=== PATIENT | female | born 1995 | race Caucasian/White ===

== ENCOUNTER → 2020-09-13 09:05 | Outpatient (BNVA) | payer MEDICAID, SELFPAY | PROVIDERS: PCP Nurse Practitioner Family; Visit Provider Advanced Practice Midwife | DX: Z32.01 Encounter for pregnancy test, result positive (principal) | CPT/HCPCS: 81025; 99212 ==

== ENCOUNTER 2020-10-11 09:56 | Outpatient (REF) | payer MEDICAID, SELFPAY ==
[2020-10-11 11:48] LABS: MANUAL DIFF FLAG NO
[2020-10-11 12:07] LABS: Basophils Percent Auto 0.4 % (0-2); Eosinophils Absolute Auto 0.1 X10*3/uL (0.0-0.4); Eosinophils Percent Auto 0.7 % (0-4); Hematocrit 34.7 % (37-47); Hemoglobin 11.2 g/dl (12.0-16.0); Imm Gran Abs Auto 0.03 X10*3/uL (0.00-0.03); Imm Gran Pct Auto 0.3 % (0.0-0.4); Lymphocytes Absolute Auto 1.5 X10*3/uL (1.2-4.9); Lymphocytes Percent Auto 17.2 % (20-40); Mean Corpuscular HGB Conc 32.3 g/dl (31.0-35.0); Mean Corpuscular Hemoglobin 26.7 pg (27.0-33.0); Mean Corpuscular Volume 82.6 fL (80-98); Mean Platelet Volume 9.5 fL (9.4-12.3); Monocytes Absolute Auto 0.5 X10*3/uL (0.1-1.2); Monocytes Percent Auto 5.6 % (2-11); Neutrophils Absolute Auto 6.8 X10*3/uL (2.0-8.3); Neutrophils Percent Auto 75.8 % (45-73); Platelet Count 449 X10*3/uL (160-400); Red Cell Distribution Width 15.5 % (11.0-16.0)
[2020-10-11 12:34] LABS: Amphetamine Screen Urine Not Detected (Not Detect); Barbiturates, Urine Not Detected (Not Detect); Benzodiazepines Screen Urine Not Detected (Not Detect); Cannabinoid Screen Urine POSITIVE (Not Detect); Cocaine Screen Urine Not Detected (Not Detect); Opiate Screen Urine Not Detected (Not Detect); Phencyclidine Screen Urine Not Detected (Not Detect)
[2020-10-11 13:34] LABS: Syphilis Screen Nonreactive (Nonreactive)
[2020-10-12 08:26] LABS: HBsAGNum1 0.17 S/CO (0.00-0.99); Hepatitis B Surface Antigen Negative (Negative); ~HepC Num1 0.06 S/CO (0.00-0.79); ~Hepatitis C Antibody Nonreactive (Nonreactive)
[2020-10-12 09:03] LABS: HIV AB/AG Nonreactive (Nonreactive); HIV Num 1 0.06 S/CO (0.00-0.99)
[2020-10-12 09:37] LABS: Rubella IgG Antibody 1.26 Index
== END 2020-10-11 09:57 | disposition home or self-care (01) ==
LOC: HO.LAB 09:56
PROVIDERS: Absent Provider Advanced Practice Midwife; Visit Provider Advanced Practice Midwife
DX: Z34.90 Encounter for supervision of normal pregnancy, unspecified, unspecified trimester (principal)
CPT/HCPCS: 80307; 85025; 86762; 86780; 86787; 86803; 86850; 86900; 86901; 87086; 87340; 87389; 99212

== ENCOUNTER 2020-10-22 09:32 | Outpatient (REF) | payer MEDICAID, SELFPAY ==
--- NOTE | ~2020-10-22 | US_ITS ---
EXAMINATION: OBSTETRICAL ULTRASOUND, FIRST TRIMESTER HISTORY: 25-year-old at the 11.4 weeks of gestation NT screening COMPARISON: 01/23/2020 TECHNIQUE: Real time transabdominal imaging with color and M-mode Doppler. FINDINGS: A single, live IUP CRL of 32.6 mm c/w 10.2wks is noted. Heart Rate: 161 beats per minute. Normal yolk sac seen. NT was 1.1.mm. NB Present The embryo appears sonographically wnl for this GA. Both maternal ovaries are seen and appear normal. GESTATIONAL AGE: 1. Established GA: 11.4 wks 2. GA from [facility]: 10.2 wks ESTIMATED DATE OF DELIVERY: 1. Established KEVIN: 05/09/2021 2. KEVIN from [facility]: 05/18/2021 US/US OB 1T nuc measure IMPRESSION: 1. Single, live IUP 2. Size less than dates, CRL corresponds to 10.2 weeks. Adjust KEVIN to 05/18/2021 3. Normal NT MFM Consultation: I reviewed the ultrasound findings along with significance of NT measurement. The NT of less than 3mm is generally reassuring. However, the sensitivity for T21 detection is only 60%. I reviewed the availability of serum aneuploidy screening which includes cell-free DNA and placental protein based tests. I discussed the sensitivity, false-positive rate, and other limitations associated with each test. I also reviewed the availability of invasive diagnostic tests that are associated small but definite risk of miscarriage. We also reviewed the differences between screening tests and diagnostic tests. After our discussion, she opted for the First trimester screening that is based on cell-free DNA or non-invasive testing (NIPT). The result will be faxed to your office in approximately 7 days. A follow up at 18 weeks for survey has been scheduled. Thank you very much for this referral. Total time 30 minutes. The time spent was devoted to counseling the patient about the disease and diagnosis, coordinating care including reviewing her records, pertinent lab data and studies, as well as discussing diagnostic evaluation and workup, plan therapeutic interventions and future disposition of care. This includes any additional research needed to obtain further information in formulating the plan of care of this patient. This note was generated with a voice recognition program. Please excuse any errors which may have been overlooked during my review of this note. Sometimes these errors may affect the content or meaning of a given sentence.
== END 2020-10-22 09:33 | disposition home or self-care (01) ==
LOC: HO.US 09:32
PROVIDERS: Visit Provider Advanced Practice Midwife
DX: Z32.01 Encounter for pregnancy test, result positive (principal)
CPT/HCPCS: 76813

== ENCOUNTER 2020-10-26 10:58 | Outpatient (REF) | payer MEDICAID, SELFPAY ==
[2020-10-27 04:14] LABS: CT PCR NOT DETECTED (Not Detect.); NG PCR NOT DETECTED (Not Detect.)
== END 2020-10-26 10:59 | disposition home or self-care (01) ==
LOC: HO.LAB 10:58
PROVIDERS: Visit Provider Advanced Practice Midwife
DX: O09.41 Supervision of pregnancy with grand multiparity, first trimester (principal); Z3A.12 12 weeks gestation of pregnancy
CPT/HCPCS: 81003; 87491; 87591; 99212

== ENCOUNTER → 2020-11-23 10:32 | Outpatient (BNVA) | payer MEDICAID, SELFPAY | PROVIDERS: Visit Provider Advanced Practice Midwife | DX: O09.212 Supervision of pregnancy with history of pre-term labor, second trimester (principal); Z3A.16 16 weeks gestation of pregnancy | CPT/HCPCS: 81003; 99212 ==

== ENCOUNTER 2020-12-17 11:23 | Outpatient (REF) | payer MEDICAID, SELFPAY ==
--- NOTE | ~2020-12-17 | US_ITS ---
EXAMINATION: US OBSTETRICAL CLINICAL INFORMATION: 25-year-old at 19.4 weeks of gestation Screening for anomaly COMPARISON: 10/22/2020 TECHNIQUE: Real-time transabdominal ultrasound was performed using C1-5 megahertz transducer. FINDINGS: A single, active, fetus is seen in transverse presentation. The placenta is posterior, fundal without previa, and the amniotic fluid volume is wnl. MEASUREMENTS: 1. Biparietal Diameter: 3.9 cm; 18.0 wks 2. Occipital Frontal Diameter: 5.4 cm 3. Head Circumference: 15.0 cm; 18.0 wks 4. Abdominal Circumference: 12.6 cm; 18.2 wks 5. Femur Length: 2.7 cm; 18.3 wks 6. Humerus Length: 6 2.6 cm; 18.2 wks 7. Tibia Length: 2.3 cm; 18.2 wks 8. Ulna Length: 2.5 cm; 19.0 wks 9. Lateral ventricle: 0.7 cm 10. Cerebellum: 1.8 cm; 19.0 wks 11. Cisterna Magna: 0.4 cm 12. Nuchal Fold: 3.5 mm 13. Heart Rate: 140 beats per minute Rt ovary: normal Lt ovary: normal Cervical length 4.1 cm on T/A. GESTATIONAL AGE: 1. Established GA: 19.4 wks 2. GA from [facility]: 18.2 wks ESTIMATED DATE OF DELIVERY: 1. Established KEVIN: 05/09/2021 2. KEVIN from [facility]: 05/18/2021 ANATOMY: The visualized anatomy includes but not limited to: 1. Cranium: Normal 2. Intracranial anatomy: cavum septum pellucidi, lateral ventricles, choroid plexus, cerebellum, posterior fossa, third and fourth ventricles. 3. face: orbits, lip/palate, profile, nasal bone 4. Heart: four-chamber view of the heart, ventricular septum, foramen ovale, pulmonary vein, left and right outflow tracts, three-vessel view, 3 vessel trachea view, aortic and ductal arches, situs.. 5. Diaphragm: Normal 6. Abdominal wall: Normal 7. Cord Insertion: Normal 8. Spine: Cervical, thoracic, lumbar, sacral. 9. Stomach: Normal size and shape 10. Right Kidney: Normal 11. Left Kidney: Normal 12. 3 vessel cord: Normal 13. Upper extremity: Open hands, fifth digit. 14. Lower extremity: Tibia, fibula, bilateral feet. 15. Bladder: Normal 16. Genitalia: Female, patient aware US/US OB /maternal detail IMPRESSION: 1. Single, living, intrauterine with appropriate biometry. 2. Normal survey DISCUSSION: I reviewed today's ultrasound findings. We discussed the limitations of ultrasound in diagnosing aneuploidy and other congenital abnormalities. I reviewed the differences between screening test and diagnostic test. Amniocentesis was discussed and declined. She was informed that the baseline incidence of congenital abnormalities is approximately 3-5%. Not all these conditions are diagnosable in utero. RECOMMENDATIONS: Follow-up when necessary. Thank you for allowing me to participate in her care. Total time 20 minutes. The time spent was devoted to counseling the patient about the disease and diagnosis, coordinating care including reviewing her records, pertinent lab data and studies, as well as discussing diagnostic evaluation and workup, plan therapeutic interventions and future disposition of care. This includes any additional research needed to obtain further information in formulating the plan of care of this patient. This note was generated with a voice recognition program. Please excuse any errors which may have been overlooked during my review of this note. Sometimes these errors may affect the content or meaning of a given sentence.
== END 2020-12-17 11:24 | disposition home or self-care (01) ==
LOC: HO.US 11:23
PROVIDERS: Visit Provider Advanced Practice Midwife
DX: O09.899 Supervision of other high risk pregnancies, unspecified trimester (principal); O35.9XX0 Maternal care for (suspected) fetal abnormality and damage, unspecified, not applicable or unspecified; Z3A.19 19 weeks gestation of pregnancy
CPT/HCPCS: 76811

== ENCOUNTER → 2020-12-22 11:23 | Outpatient (BNVA) | payer MEDICAID, SELFPAY | PROVIDERS: Visit Provider Advanced Practice Midwife | DX: O09.893 Supervision of other high risk pregnancies, third trimester (principal); Z3A.20 20 weeks gestation of pregnancy | CPT/HCPCS: 99212 ==

== ENCOUNTER 2021-01-14 13:31 | Outpatient (REF) | payer MEDICAID, SELFPAY ==
[2021-01-14 14:24] LABS: COVID-19 Test Positive (Negative)
== END 2021-01-14 13:32 | disposition home or self-care (01) ==
LOC: HO.LAB 13:31
PROVIDERS: Visit Provider Internal Medicine
DX: Z20.822 Contact with and (suspected) exposure to COVID-19 (principal)
CPT/HCPCS: 36415; 87635; C9803

== ENCOUNTER 2021-01-24 13:09 | Outpatient (REF) | payer MEDICAID, SELFPAY | END 2021-01-24 13:10 | disposition home or self-care (01) | LOC: HO.LAB 13:09 | PROVIDERS: Visit Provider Internal Medicine | DX: Z20.822 Contact with and (suspected) exposure to COVID-19 (principal) | CPT/HCPCS: C9803; U0003; U0005 ==

== ENCOUNTER → 2021-03-03 10:06 | Outpatient (BNVA) | payer MEDICAID, SELFPAY | PROVIDERS: Visit Provider Advanced Practice Midwife | DX: O09.893 Supervision of other high risk pregnancies, third trimester (principal); Z3A.30 30 weeks gestation of pregnancy | CPT/HCPCS: 81003; 99212 ==

== ENCOUNTER 2021-03-16 08:56 | Outpatient (REF) | payer MEDICAID, SELFPAY ==
[2021-03-16 10:46] LABS: Hematocrit 29.6 % (37-47); Hemoglobin 8.8 g/dl (12.0-16.0); Mean Corpuscular HGB Conc 29.7 g/dl (31.0-35.0); Mean Corpuscular Hemoglobin 23.5 pg (27.0-33.0); Mean Corpuscular Volume 78.9 fL (80-98); Mean Platelet Volume 9.6 fL (9.4-12.3); Platelet Count 367 X10*3/uL (160-400); Red Blood Count 3.75 X10*6/uL (4.20-5.50); Red Cell Distribution Width 15.2 % (11.0-16.0); White Blood Count 8.6 X10*3/uL (4.8-10.8)
[2021-03-16 11:02] LABS: Glucose 1 Hour PP 50gm Dose 99 mg/dL (60-140)
[2021-03-16 11:26] LABS: Syphilis Screen Nonreactive (Nonreactive)
== END 2021-03-16 08:57 | disposition home or self-care (01) ==
LOC: HO.LAB 08:56
PROVIDERS: Visit Provider Advanced Practice Midwife
DX: O09.899 Supervision of other high risk pregnancies, unspecified trimester (principal); Z3A.00 Weeks of gestation of pregnancy not specified
CPT/HCPCS: 36415; 85027; 86780

== ENCOUNTER 2021-03-17 14:04 | Outpatient (REF) | payer MEDICAID, SELFPAY ==
[2021-03-18 14:08] LABS: CT PCR NOT DETECTED (Not Detect.); NG PCR NOT DETECTED (Not Detect.)
== END 2021-03-17 14:05 | disposition home or self-care (01) ==
LOC: HO.LAB 14:04
PROVIDERS: Visit Provider Advanced Practice Midwife
DX: O09.213 Supervision of pregnancy with history of pre-term labor, third trimester (principal); O99.013 Anemia complicating pregnancy, third trimester; D64.9 Anemia, unspecified; Z3A.32 32 weeks gestation of pregnancy
CPT/HCPCS: 81003; 87081; 87491; 87591; 99212

== ENCOUNTER 2021-03-21 13:47 | Outpatient (REF) | payer MEDICAID, SELFPAY ==
[2021-03-21 17:35] LABS: Fetal Fibronectin Negative (Negative)
== END 2021-03-21 13:48 | disposition home or self-care (01) ==
LOC: HO.LAB 13:47
PROVIDERS: Visit Provider Advanced Practice Midwife
DX: O99.013 Anemia complicating pregnancy, third trimester (principal); O09.893 Supervision of other high risk pregnancies, third trimester; Z3A.33 33 weeks gestation of pregnancy
CPT/HCPCS: 82731; 99212

== ENCOUNTER → 2021-04-08 13:43 | Outpatient (BNVA) | payer MEDICAID, SELFPAY | PROVIDERS: Visit Provider Advanced Practice Midwife | DX: O47.03 False labor before 37 completed weeks of gestation, third trimester (principal); O99.013 Anemia complicating pregnancy, third trimester; D64.9 Anemia, unspecified; Z3A.35 35 weeks gestation of pregnancy | CPT/HCPCS: 81003; 99212 ==

== ENCOUNTER → 2021-04-14 09:18 | Outpatient (BNVA) | payer MEDICAID, SELFPAY | PROVIDERS: Visit Provider Advanced Practice Midwife | DX: Z34.83 Encounter for supervision of other normal pregnancy, third trimester (principal); Z3A.36 36 weeks gestation of pregnancy | CPT/HCPCS: 99212 ==

== ENCOUNTER 2021-04-20 10:51 | Outpatient (REF) | payer MEDICAID, SELFPAY ==
[2021-04-20 15:55] LABS: CT PCR NOT DETECTED (Not Detect.); NG PCR NOT DETECTED (Not Detect.)
== END 2021-04-20 10:52 | disposition home or self-care (01) ==
LOC: HO.LAB 10:51
PROVIDERS: Visit Provider Obstetrics & Gynecology
DX: O99.013 Anemia complicating pregnancy, third trimester (principal); D64.9 Anemia, unspecified; O09.213 Supervision of pregnancy with history of pre-term labor, third trimester; Z3A.37 37 weeks gestation of pregnancy; Z79.899 Other long term (current) drug therapy; Z23 Encounter for immunization
CPT/HCPCS: 87081; 87147; 87491; 87591; 90686; 99212

== ENCOUNTER → 2021-04-28 14:08 | Outpatient (BNVA) | payer MEDICAID, SELFPAY | PROVIDERS: Visit Provider Advanced Practice Midwife | DX: Z34.83 Encounter for supervision of other normal pregnancy, third trimester (principal); Z3A.38 38 weeks gestation of pregnancy | CPT/HCPCS: 99212 ==

== ENCOUNTER 2021-05-04 10:06 | Outpatient (REF) | payer MEDICAID, SELFPAY ==
[2021-05-04 10:23] LABS: Hemoglobin 8.1 g/dl (12.0-16.0); Mean Corpuscular HGB Conc 28.9 g/dl (31.0-35.0); Mean Corpuscular Hemoglobin 21.2 pg (27.0-33.0); Mean Corpuscular Volume 73.3 fL (80.0-98.0); Mean Platelet Volume 9.9 fL (9.4-12.3); Platelet Count 292 X10*3/uL (160-400); Red Blood Count 3.82 X10*6/uL (4.20-5.50); Red Cell Distribution Width 17.2 % (11.0-16.0); White Blood Count 9.1 X10*3/uL (4.8-10.8)
== END 2021-05-04 10:07 | disposition home or self-care (01) ==
LOC: HO.LAB 10:06
PROVIDERS: Visit Provider Advanced Practice Midwife
DX: O99.013 Anemia complicating pregnancy, third trimester (principal); D64.9 Anemia, unspecified
CPT/HCPCS: 36415; 85027

== ENCOUNTER → 2021-05-05 08:51 | Outpatient (BNVA) | payer MEDICAID, SELFPAY | PROVIDERS: Visit Provider Advanced Practice Midwife | DX: O99.013 Anemia complicating pregnancy, third trimester (principal); O98.813 Other maternal infectious and parasitic diseases complicating pregnancy, third trimester; B95.1 Streptococcus, group B, as the cause of diseases classified elsewhere; O26.613 Liver and biliary tract disorders in pregnancy, third trimester; K83.1 Obstruction of bile duct; Z3A.39 39 weeks gestation of pregnancy | CPT/HCPCS: 99212 ==

== ENCOUNTER → 2021-07-19 11:52 | Outpatient (BNVA) | payer MEDICAID, SELFPAY | PROVIDERS: Visit Provider Obstetrics & Gynecology | DX: Z30.09 Encounter for other general counseling and advice on contraception (principal) | CPT/HCPCS: 99212 ==

== ENCOUNTER → 2021-08-17 09:44 | Outpatient (BNVA) | payer MEDICAID, SELFPAY | PROVIDERS: PCP Internal Medicine; Visit Provider Obstetrics & Gynecology | DX: Z01.818 Encounter for other preprocedural examination (principal) | CPT/HCPCS: 99212 ==

== ENCOUNTER 2021-08-19 07:30 | Day surgery (SDC) | payer MEDICAID, SELFPAY ==
[2021-08-12 12:51] VITALS: BMI 24.5
[2021-08-19] VITALS (12 sets, daily range): BP systolic 101–114; BP diastolic 64–75; PULSE 58–82; RESP 14–20; TEMP 36.4–36.7; O2SAT 97–100
[2021-08-19 08:00] LABS: UPreg QC Valid YES; Urine Pregnancy NEGATIVE (NEGATIVE)
--- NOTE | 2021-08-19 08:13 | HO.ANESPROP2 ---
HPI - Anesthesia Eval Consult details Narrative: 26 yo female patient for laparoscopic bilateral tubal cauterization, possible salpingectomy PMFSH Active Problems Active Problems: All Active Problems (Updated 08/17/21 @ 09:56 by Jaime Marinelli MD) Healthy Past Medical History Medical History (Updated 08/19/21 @ 08:21 by Eileen Mascorro MD) Anemia affecting Cholestasis during in third trimester COVID-19 vaccine series completed History of COVID-19 Family History Family History Mother Colon cancer Father Prostate cancer Paternal Grandfather Prostate cancer Family history of problems with anesthesia: No Surgical History Surgical History History of surgery on right wrist History of Problems with Anesthesia: No Social History Social History Household Members: Children Alcohol intake: never Patient Tobacco Use Status: Never used Tobacco Use of substances other than those prescribed or required for medical reasons: No Are you DNR?: No Advance Directives: No Advance Directives Information Provided: Yes (brochure mailed) Advance Directives on File: No Recently lost weight without trying: No Eating poorly because of decreased appetite: No Nutrition Risks: No Nutritional Risk Patient : No FDLMP: 07/12/21 : No (childbirth 04/2021) Gender identity: Female Meds Allergies Allergy/AdvReac Type Severity Reaction Status Date / Time No Known Allergies Allergy Verified 07/19/21 12:05 Home Medications Medication Instructions Recorded Confirmed Last Taken Type No Known Home Meds 08/12/21 08/12/21 Unknown History Exam Exam Date and Time: August 19, 2021 0813 Height,Weight and Vital Signs: Height 5 ft 6 in Weight 68.946 kg Last Vital Signs Temp 97.5 F 08/19/21 07:45 Pulse 68 08/19/21 07:45 Resp 18 08/19/21 07:45 BP 110/66 08/19/21 07:45 Pulse Ox 100 08/19/21 07:45 Pertinent Lab Results Pertinent Lab Results: Laboratory Tests 08/19/21 07:45 Urine Test NEGATIVE Airway Mallampati Class: II TM Dist: >3cm Neck ROM: Full Loose/Missing/Broken Teeth: No Heart: RRR Lungs: CTAB Assessment and Plan Assessment Anesthesia Assessment: Anesthesia Plan Discussed Final Anesthetic Review Family History of Problems with Anesthesia: No History of Problems with Anesthesia: No NPO: Yes ASA Class: I Final Preanesthetic Review: No Changes in Pt Med Stat, Meds/Allgs Chart Reviewed, Consent Obtained/Reviewed and Anes Risks/Benef Reviewed Patient Risk: Low Procedure Risk: Low Assessment/Block/Sedation in SS: Assess/Block/Sedation-SS Anesthetic Plan Anesthetic Plan: GA Disposition: Standard PACU
[2021-08-19] MEDS: Acetaminophen 325 MG TABLET 650 MG PO (08:42)
[2021-08-19] MEDS: Lactated Ringers 1,000 ML 100 ML IVCONT (08:44)
--- NOTE | 2021-08-19 08:49 | MHC.SHP ---
Pre-Procedural Eval Section A Date of Service: 08/19/21 The patient is an INPATIENT: No Changes since office visit: No Cold of Flu in the past 2 weeks, No New Medical Problems, No Changes in Medication and No Patient answered all questions The History & Physical has been completed within 30 days and I have reviewed it.: Yes Section B Chief Complaint: permanent sterilization Allergies: Allergies Allergy/AdvReac Type Severity Reaction Status Date / Time No Known Allergies Allergy Verified 07/19/21 12:05 Plan Diagnosis/Plan: Unchanged I have reviewed the history and physical and performed a pertinent physical examination on my patient. No changes have occurred unless specified.
--- NOTE | 2021-08-19 10:19 | PM.OP ---
Brief Operative Note Date of Service: 08/19/21 Pre-op diagnosis: Completed family, requesting permanent sterilization Post-op diagnosis: same Procedure: Laparoscopic bliateral salpingectomy Surgeon: Jaime Marinelli MD Anesthesia: GETA Was an Electrician Journeyman Wireman used for this Procedure?: No Estimated blood loss (mL): 0 Pathology: other (Right & left fallopian tubes) Condition: stable Disposition: PACU
--- NOTE | 2021-08-19 10:19 | W.PM.OPN ---
Operative Note Operative Note Date of Service: 08/19/21 Narrative: PREOPERATIVE DIAGNOSIS:?Completed family requesting?permanent sterilization POSTOPERATIVE DIAGNOSIS:?Completed family requesting?permanent sterilization QBL: Minimal Anesthesia: GETA SURGEON:? Jaime Marinelli MD?? Shirt Line Operator: Complications: None Pathology: Right and left Fallopian tubes? DESCRIPTION OF PROCEDURE:?The patient was taken to the OR where general anesthesia was easily obtained. The patient was then prepped and draped in a sterile fashion and placed in dorsal lithotomy position. A speculum was introduced into the patient?s vagina for cervical visualization. Once the cervix was visualized, a single-toothed tenaculum was applied to the upper lip of the cervix, and a Humi manipulator was introduced into the patient?s cervix. The single tooth tenaculum was then removed and hemostasis was assured?using pressure. a Bradford catheter?was inserted and clear urine started draining. Gloves were changed to clean ones. Attention was then drawn to the abdomen where a 10 mm longitudinal incision was done intra umbilical and carried down all the way to the fascia, which was tented?up using 2 Mitchell clamps and was nicked in the midline and then extended on both end of the incision?, them using 2 pick?ups the peritoneum?was entered with Metzenbaum scissors and under direct visualization, a 10 mm Mancera trocar was introduced into the patient?s abdomen. Once intraperitoneal placement was confirmed with direct visualization, pneumoperitoneum was started & was easily obtained.Then, two fingerbreadths above the pubic symphysis and towards the?right lower quadrant, under direct visualization, a 5 mm trocar was then introduced into the patient?s abdomen. and a 3rd one on the left?lower quadrant was placed?in a similar manner. The patient was placed in Trendelenburg position, Inspection revealed normal pelvic structures & bilateral ovaries and fallopian tubes. Attention was then drawn to the left fallopian tube. The IP ligament was identified and fallopian tube was then grasped by the fimbria and incised from the mesosalpinx using ligasure device, using cautery for hemostasis and cutting afterwards a bite at a time all the way to the cornual end of the left tube. The same was done?on the?right fallopian tube. Good hemostasis was noted from both fallopian tube sites and the operative site. Specimen were then removed from the patient?s abdomen. Copious irrigation was done. Once good hemostasis was noted from the patient?s abdomen, pneumoperitoneum was deflated and all trocars were removed. Infraumbilical fascia was closed with 0 Vicryl and interrupted suture. The skin was closed with 4-0 Vicryl. The Right and left?lower quadrant ports were closed with 0 Vicryl. Bupivicaine 0.25 10 cc were injected subcuticularly in the 3 incisions. Then speculum was put back in the vagina inspection revealed?hemostasis at the site of the tenaculum, the?humi manipulator was removed? and Bradford was draining clear urine was taken out too. Sponge, lap and needle counts were correct x2. The patient was taken to the recovery room in stable condition.
[2021-08-19] MEDS: fentaNYL citrate/PF 100 MCG/2 ML VIAL 25 MCG IVPUSH ×3 (10:31→11:31)
[2021-08-19] MEDS: oxyCODONE HCl Immed Release 5 MG TABLET PO (10:31)
[2021-08-19] MEDS: ondansetron HCL 4 MG/2 ML VIAL IVPUSH (10:32)
== END 2021-08-19 12:27 | disposition home or self-care (01) ==
PROVIDERS: PCP Internal Medicine; Visit Provider Obstetrics & Gynecology
PROC: (CPT 58670; principal; 2021-08-19 09:20)
DX: Z30.2 Encounter for sterilization (principal); Z86.16 Personal history of COVID-19
CPT/HCPCS: 58661; 81025; 86850; 86900; 86901; 88302; J1100; J1170; J1885; J2250; J2405; J3010

== ENCOUNTER 2022-01-23 17:46 | Emergency (ER) | payer MEDICAID, SELFPAY ==
--- NOTE | ~2022-01-23 | XR_ITS ---
EXAMINATION: XR CHEST CLINICAL INFORMATION: Rib pain with inspiration COMPARISON: Chest x-ray 10/08/2007 TECHNIQUE: Frontal view of the chest was obtained. FINDINGS: The lungs are clear. No airspace consolidation, pleural effusion, or pneumothorax. The cardiomediastinal silhouette is within normal limits. No displaced rib fractures identified. XR/XR chest 1V IMPRESSION: Unremarkable examination.
[2022-01-23 18:16] VITALS: PULSE 78; RESP 18; TEMP 37; O2SAT 98; BMI 20.3
[2022-01-23 21:20] VITALS: BP 107/67; PULSE 78; RESP 15; TEMP 36.7; O2SAT 98
[2022-01-23 21:41] LABS: MANUAL DIFF FLAG NO
[2022-01-23 21:44] LABS: Basophils Absolute Auto 0.1 X10*3/uL (0.0-0.2); Basophils Percent Auto 0.4 % (0-2); Eosinophils Absolute Auto 0.1 X10*3/uL (0.0-0.4); Eosinophils Percent Auto 0.6 % (0-4); Hematocrit 29.3 % (37.0-47.0); Imm Gran Abs Auto 0.08 X10*3/uL (0.00-0.03); Imm Gran Pct Auto 0.5 % (0.0-0.4); Lymphocytes Absolute Auto 2.6 X10*3/uL (1.2-4.9); Lymphocytes Percent Auto 15.1 % (20-40); Mean Corpuscular HGB Conc 30.7 g/dl (31.0-35.0); Mean Corpuscular Hemoglobin 22.2 pg (27.0-33.0); Mean Corpuscular Volume 72.2 fL (80.0-98.0); Mean Platelet Volume 9.2 fL (9.4-12.3); Monocytes Percent Auto 5.9 % (2-11); Neutrophils Absolute Auto 13.2 x10*3/uL (2.0-8.3); Neutrophils Percent Auto 77.5 % (45-73); Platelet Count 507 X10*3/uL (160-400); Red Blood Count 4.06 X10*6/uL (4.20-5.50); Red Cell Distribution Width 16.9 % (11.0-16.0)
[2022-01-23 21:45] LABS: Appearance Urine HAZY; Color Urine YELLOW; Glucose Urine UA NEG (NEG); Leukocyte Esterase Urine 1+ (NEG); Nitrite Urine POS (NEG); PH 6.5 (5.0-8.0); Specific Gravity - Urine 1.015 (1.005-1.025); UACC Culture Trigger YES; Urine Blood NEG (NEG); Urine Ketones 40 MG/DL (NEG); Urine Protein 1+ MG/DL (NEG-TRACE)
[2022-01-23 21:54] LABS: Bacteria Urine 4+ /LPF; Squamous Epithelial Cell Urine 1+ /LPF
[2022-01-23 21:55] LABS: RBC Urine 0-2 /HPF (0)
[2022-01-23 21:58] LABS: Alanine Aminotransferase 54 U/L (0-31); Albumin Level 4.3 g/dL (3.5-5.0); Alkaline Phosphatase 115 U/L (39-117); Anion Gap 15 (12-20); Aspartate Amino Transferase 35 U/L (5-31); Bilirubin Direct 0.2 mg/dL (0.0-0.5); Bilirubin Total 0.7 mg/dL (0.0-1.0); Blood Urea Nitrogen 13 mg/dL (9-16); Calcium 9.2 mg/dL (8.4-10.2); Carbon Dioxide 24 mmol/L (22-29); Chloride 102 mmol/L (96-108); Creatinine Clr Calc Pharmacy 118.1; Estimated Glomerular Filt Rate > 60; Glucose Random 81 mg/dL (60-115); Lipase 16 U/L (8-78); Potassium 3.9 mmol/L (3.3-5.1); Sodium 137 mmol/L (135-145); Total Protein 7.5 g/dL (6.5-8.0)
--- NOTE | 2022-01-24 00:39 | ED_ITS ---
HPI - Abdominal Pain General Chief Complaint: Nausea/Vomiting/Diarrhea Stated Complaint: fever/body pain/ negative covid home test Time Seen by Provider: 01/23/22 22:24 Source: patient Limitations: no limitations History of Present Illness HPI narrative: Patient presents emergency department for evaluation of symptoms with onset 5 days ago. Complaining of fever, body aches, upper abdominal pain that radiates into her back, nausea, vomiting. States that she took an at home COVID-19 test which has been negative multiple times. She additionally endorses that a few days ago she was experiencing burning upon urination. Denies any hematuria. Denies recent urinary tract infection, history of kidney stones. Denies any abnormal vaginal discharge, abnormal vaginal bleeding. Unaware of last menstrual period, however she states she had a tubal ligation denies possibility of . Related Data Previous Rx's Medication Instructions Recorded oxycodone 5 mg capsule 5 mg PO Q4-6H PRN Pain, Severe 08/19/21 (Pain Scale 7-10) #15 caps ciprofloxacin HCl 500 mg tablet 500 mg PO Q12H 7 days #14 tabs 01/24/22 naproxen 500 mg tablet 500 mg PO BID PRN pain #14 tabs 01/24/22 ondansetron 4 mg disintegrating 4 mg PO Q8H PRN nausea and 01/24/22 tablet vomiting #10 tabs Allergies Allergy/AdvReac Type Severity Reaction Status Date / Time No Known Allergies Allergy Verified 01/23/22 18:16 Review of Systems Review of Systems Constitutional : Positive Fever, No Chills ENT/Mouth :? No sore throat, No Rhinorrhea Eyes: No Swelling, No Redness Cardiovascular : No Chest Pain, No SOB, No Edema Respiratory : No Cough, No Sputum, No Wheezing Gastrointestinal : Positive Nausea, Positive Vomiting, no Diarrhea, positive abdominal pain, No Hematochezia, No Melena Genitourinary : Positive Dysuria, No Urinary Frequency, No Hematuria, No Urgency? Musculoskeletal : No joint pain, No Myalgias, No Joint Swelling Skin : No Skin Lesions, No rash Neuro : No Weakness, No Numbness, No Dizziness, No Headache Psych : No Anxiety/Panic, No Depression Heme/Lymph: No Bruising, No Lymphadenopathy Yes all other systems are reviewed and are negative PMFSH Past Medical History Attestation statement: The following information was validated with the patient. Source: old records reviewed Medical History Anemia affecting Cholestasis during in third trimester COVID-19 vaccine series completed History of COVID-19 Surgical History History of surgery on right wrist Family History Family History Mother Colon cancer Father Prostate cancer Paternal Grandfather Prostate cancer Social History Social History Household Members: Children Alcohol intake: never Patient Tobacco Use Status: Never used Tobacco Advance Directives: No Advance Directives Information Provided: Yes Gender identity: Female Physical Exam ED Vital Signs: Vital Signs - 24 hr 01/23/22 18:16 01/23/22 21:20 Temperature 98.6 F 98.0 F Pulse Rate 78 78 Respiratory Rate 18 15 Blood Pressure 107/67 Pulse Oximetry 98 98 Oxygen Delivery Method Room Air Room Air BMI result Body Mass Index 20.3 Vital signs have been reviewed as normal and appeared to be correct. Blood pressure normal.? Heart rate normal.? Respiration rate normal. Temperature normal.? Oxygen saturation normal. Appearance: Alert.?Oriented to person, place and time. No acute distress.?Normal affect. Eyes: Pupils equal, round and reactive to light.? ENT: Pharynx normal.?? Neck: Normal inspection.? Neck supple.?? CVS: Heart sounds normal. Normal heart rate and rhythm.? Pulses normal.?? Respiratory: No respiratory distress.? Lung sounds clear to auscultation bilaterally?? Abdomen: Soft and non-tender. Negative Hein sign. Negative Rovsing sign obturator's sign, psoas sign, no rebound tenderness Normoactive bowel sounds. No pulsatile mass.??No CVA tenderness Skin: Skin warm and dry.? Normal skin color.? Extremities: No lower extremity edema.? Neuro: Moves all extremities spontaneously. Sensation intact bilaterally. No motor deficits Ambulates with normal steady gait. Course Course Course Narrative: Patient is a 26-year-old female past medical history of tubal ligation, presents emergency department for evaluation of fever, nausea, vomiting, abdominal pain. Recent dysuria which has improved. No hematuria. No history of renal calculi. No history of gallstones to her knowledge. CBC significant for leukocytosis at 17, mildly elevated AST and ALT 35/54 respectively with normal lipase. At this time low suspicion for nephrolithiasis, cholelithiasis/cholecystitis. Not consistent with appendicitis or diverticulitis. Symptoms most consistent with urinary tract infection based on urinalysis, possible early pyelonephritis. No abnormal renal function. Vital signs are stable, no tachycardia, or fever. Discussed plan of care with patient for discharge home, antibiotics, anti-inflammatory for pain, Zofran as needed for nausea. Discussed worsening signs and symptoms to return back to the emergency department for. Advised follow-up with primary care provider within 3 days. All questions were answered, and patient was discharged home in stable condition. MDM - Abdominal Pain Medical Records Attestation: I reviewed the patient's medical records. Lab Data Attestation: I reviewed the patient's lab results. Result diagrams: 01/23/22 21:26 01/23/22 21:26 Labs: Lab Results 01/23/22 01/23/22 01/23/22 Range/Units 21:26 21:26 21:33 WBC 17.0 H (4.8-10.8) X10*3/uL RBC 4.06 L (4.20-5.50) X10*6/uL Hgb 9.0 L (12.0-16.0) g/dl Hct 29.3 L (37.0-47.0) % MCV 72.2 L (80.0-98.0) fL MCH 22.2 L (27.0-33.0) pg MCHC 30.7 L (31.0-35.0) g/dl RDW 16.9 H (11.0-16.0) % Plt Count 507 H D (160-400) X10*3/uL MPV 9.2 L (9.4-12.3) fL Immature Gran % (Auto) 0.5 H (0.0-0.4) % Neut % (Auto) 77.5 H (45-73) % Lymph % (Auto) 15.1 L (20-40) % [place] % (Auto) 5.9 (2-11) % Eos % (Auto) 0.6 (0-4) % Baso % (Auto) 0.4 (0-2) % Lymph # (Auto) 2.6 (1.2-4.9) X10*3/uL [place] # (Auto) 1.0 (0.1-1.2) X10*3/uL Eos # (Auto) 0.1 (0.0-0.4) X10*3/uL Baso # (Auto) 0.1 (0.0-0.2) X10*3/uL Abs Immat Gran (auto) 0.08 H (0.00-0.03) X10*3/uL Absolute Neuts (auto) 13.2 H (2.0-8.3) x10*3/uL Absolute Nucleated RBC 0.000 (0.0-0.012) X10*3/uL Nucleated RBC % (auto) 0.0 (0.0-0.2) /100WBC Sodium 137 (135-145) mmol/L Potassium 3.9 (3.3-5.1) mmol/L Chloride 102 (96-108) mmol/L Carbon Dioxide 24 (22-29) mmol/L Anion Gap 15 (12-20) BUN 13 (9-16) mg/dL Creatinine 0.64 (0.5-1.4) mg/dL Estim Creat Clear Calc 118.1 Estimated GFR > 60 Random Glucose 81 (60-115) mg/dL Calcium 9.2 (8.4-10.2) mg/dL Total Bilirubin 0.7 (0.0-1.0) mg/dL Direct Bilirubin 0.2 (0.0-0.5) mg/dL AST 35 H (5-31) U/L ALT 54 H (0-31) U/L Alkaline Phosphatase 115 (39-117) U/L Total Protein 7.5 (6.5-8.0) g/dL Albumin 4.3 (3.5-5.0) g/dL Lipase 16 (8-78) U/L Urine Color YELLOW Urine Appearance HAZY Urine pH 6.5 (5.0-8.0) Ur Specific [place] 1.015 (1.005-1.025) Urine Protein 1+ H (NEG-TRACE) MG/DL Urine Glucose (UA) NEG (NEG) MG/DL Urine Ketones 40 (NEG) MG/DL Urine Blood NEG (NEG) Urine Nitrite POS H (NEG) Ur Leukocyte Esterase 1+ H (NEG) Urine RBC 0-2 (0) /HPF Urine WBC 15-29 H (0-4) /HPF Ur Squamous Epith Cells 1+ /LPF Urine Bacteria 4+ /LPF Discharge Plan Discharge Clinical Impression: Urinary tract infection Patient Disposition: Home, Self-Care Instructions: Urinary Tract Infection in Women (ED) Additional Instructions: You have been given a prescription for an antibiotic to treat a urinary tract infection. Please complete this entire course. Zofran as needed for nausea, naproxen twice daily as needed for pain do not take ibuprofen/Motrin, Aleve, or aspirin while taking this medication. You may take Tylenol in addition to the naproxen. If you develop worsening symptoms, fevers not responding to Tylenol/naproxen, persistent vomiting, blood in your urine, inability to urinate, you should be re-evaluated. Please contact your primary care provider and arrange for a follow-up visit within 3 days. Feel free to return to the emergency department any new or worsening symptoms or concerns. Prescriptions: New ciprofloxacin HCl 500 mg tablet 500 mg PO Q12H 7 Days Qty: 14 0RF naproxen 500 mg tablet 500 mg PO BID PRN (Reason: pain) Qty: 14 0RF ondansetron 4 mg tablet,disintegrating 4 mg PO Q8H PRN (Reason: nausea and vomiting) Qty: 10 0RF No Action oxycodone 5 mg capsule 5 mg PO Q4-6H PRN (Reason: Pain, Severe (Pain Scale 7-10)) Qty: 15 0RF
[2022-01-24] MEDS: NaPROXEN 500 MG TABLET PO (01:02)
[2022-01-24] MEDS: Ondansetron ODT 4 MG TAB.RAPDIS TRANSLINGU (01:02)
[2022-01-24 01:16] VITALS: BP 112/68; PULSE 68; RESP 16; O2SAT 98
[2022-01-24 01:25] LABS: HCG Quantitative < 2 mIU/mL
== END 2022-01-24 01:20 | disposition home or self-care (01) ==
PROVIDERS: Nurse Practitioner Family; Emergency Provider Emergency Medicine
DX: N39.0 Urinary tract infection, site not specified (principal); B96.20 Unspecified Escherichia coli [E. coli] as the cause of diseases classified elsewhere
CPT/HCPCS: 36415; 71045; 80048; 80076; 81001; 83690; 84702; 85025; 87086; 87088; 87186; 99283

== ENCOUNTER 2023-04-10 12:11 | Emergency (ER) | payer MEDICAID, SELFPAY ==
--- NOTE | ~2023-04-10 | XR_ITS ---
EXAMINATION: XR WRIST, RIGHT XR HAND, RIGHT CLINICAL INFORMATION: Pain. Difficulty with wrist extension. COMPARISON: Right hand and wrist radiographs dated 03/07/2015. TECHNIQUE: PA, oblique, lateral, and scaphoid views of the right hand and wrist. FINDINGS: No acute fracture or dislocation. Normal carpal alignment. No joint space narrowing or marginal osteophytes. No osseous erosion. Accessory ossicle redemonstrated adjacent to the ulnar styloid, unchanged. No new abnormal soft tissue calcification. XR/XR hand wrist RT IMPRESSION: Unremarkable examination.
[2023-04-10 12:14] VITALS: BP 122/59; PULSE 89; RESP 20; TEMP 36.2; O2SAT 100
--- NOTE | 2023-04-10 12:17 | ED_ITS ---
HPI - Extremity Problem General Chief complaint: Extremity Problem Stated complaint: R hand inj Time Seen by Provider: 04/10/23 14:14 Source: patient Mode of arrival: ambulatory Limitations: no limitations History of Present Illness HPI Narrative: Patient is a 27-year-old female presenting to the emergency department with complaint of right thumb pain since yesterday. Patient reports that she was cleaning and bumped her arm on a table. Since that time pain has persisted and she has developed ecchymosis to her thumb. She has not taken any [id number] medications for her symptoms. Denies any numbness or tingling. Reports increased pain with range of motion. MD Complaint: extremity pain Onset (ago): day(s) Pain Consistency: constant Location: right and upper extremity Quality: aching Radiation: none Relieving factors: nothing Exacerbating factors: nothing Associated symptoms: denies other symptoms Related Data Previous Rx's Medication Instructions Recorded oxycodone 5 mg capsule 5 mg PO Q4-6H PRN Pain, Severe 08/19/21 (Pain Scale 7-10) #15 caps ciprofloxacin HCl 500 mg tablet 500 mg PO Q12H 7 days #14 tabs 01/24/22 naproxen 500 mg tablet 500 mg PO BID PRN pain #14 tabs 01/24/22 ondansetron 4 mg disintegrating 4 mg PO Q8H PRN nausea and 01/24/22 tablet vomiting #10 tabs Allergies Allergy/AdvReac Type Severity Reaction Status Date / Time No Known Allergies Allergy Verified 01/23/22 18:16 Review of Systems Review of Systems: As per HPI. Yes all other systems are reviewed and are negative Constitutional: Constitutional: Reports as per HPI PMFSH Past Medical History Medical History Anemia affecting Cholestasis during in third trimester COVID-19 vaccine series completed History of COVID-19 Surgical History History of surgery on right wrist Family History Family History Mother Colon cancer Father Prostate cancer Paternal Grandfather Prostate cancer Social History Social History Household Members: Children Alcohol intake: never Patient Tobacco Use Status: Never used Tobacco Advance Directives: No Advance Directives Information Provided: No Gender identity: Female Physical Exam Vital Signs: Vital Signs: Last Vital Signs Temp 97.2 F 04/10/23 12:14 Pulse 89 04/10/23 12:14 Resp 20 04/10/23 12:14 BP 122/59 L 04/10/23 12:14 Pulse Ox 100 04/10/23 12:14 O2 Del Method Room Air 04/10/23 12:14 BMI result Body Mass Index 20.0 Vital signs have been reviewed and appear to be correct. Blood pressure normal. Heart rate normal. Respiratory rate normal. Temperature normal. Oxygen saturation normal. Const: General: cooperative, healthy appearing and no acute distress Orientation/consciousness: oriented to person, oriented to place, oriented to time and patient oriented x3 Limitations: no limitations HEENT: Head: Yes normocephalic and Yes atraumatic Ears: external ears normal General nose exam: Normal external nose present Face and sinus: Yes face symmetric Mouth: oropharynx normal and moist mucous membranes Throat: Yes uvula midline Eyes: Pupils: Equal, round and reactive pupils present Neck: Neck: Yes normal visual inspection and Yes supple Resp: Effort & Inspection: normal respiratory effort and able to speak in complete sentences Auscultation: clear to auscultation bilaterally Cardio: Rate: regular rate Rhythm: regular rhythm Heart sounds: S1 normal heart sound present and S2 normal heart sound present Skin: General skin exam: elasticity normal and turgor normal Neuro: General: oriented to person, oriented to place, oriented to time, patient oriented x3, moves all extremities, no focal motor deficits and CN's II- XI intact bilaterally Cranial nerves: Yes Equal, round and reactive pupils present Cognition (Neuro): normal cognition Extrem: General: Yes full ROM Right upper extremity: wrist Details: normal to inspection, tenderness Location: of the volar wrist and normal ROM; no unusual warmth and no ecchymosis and Extremity exam: right hand Details: normal to inspection, normal capillary refill, neuromotor exam normal, neurosensory exam normal, tendon exam normal, tenderness Location: of the thumb Location: at the MCP joint, vascular exam Details: radial pulse present and normal capillary refill, normal ROM of fingers and ecchymosis Location: of the thumb Location: at the MCP joint Psych: Mental Status: mental status grossly normal Affect: normal affect Thought process: Normal thought process present Course Course Course Narrative: Patient complains of right hand pain after injury as well as right wrist pain This is rapid medical exam done in triage pending full evaluation of patient, and results as well as disposition by provider in the ER X-ray right hand and wrist ordered Medical Decision Making Medical Decision Making [facility] Narrative: Patient is a 27-year-old female presenting to the emergency department with complaint of right thumb pain since yesterday. On exam patient is awake, A+Ox3, VS WNL, afebrile, normal neurological exam without focal deficits, physical exam findings as above. Given reported symptoms and physical exam findings, initial differential includes contusion, strain, sprain, fracture. X-ray notable for no evidence of fracture to wrist/hand. My interpretation is in agreement with the radiologist's interpretation. Results discussed with patient all questions answered. Casey wrap applied. Advised patient to ice the area for 10-15 minutes at a time several times daily, alternate Tylenol and ibuprofen as needed for discomfort. Instructed patient to follow-up with primary care provider. Return precautions discussed at bedside. Will refer patient to Orthopedics for any ongoing symptoms. Patient verbalized understanding of and agreement with plan. Differential Diagnosis Differential Diagnoses: The differential diagnosis associated with the presentation includes As per MDM. Independent Interpretation I performed an independent interpretation of an: Plain X-Ray Interpretation: No acute fracture Radiology Impression Discussion of test interpretation with radiology: I have reviewed the radiologist's reading. Radiologist Impression: No acute fracture or dislocation. Normal carpal alignment. No joint space narrowing or marginal osteophytes. No osseous erosion. Accessory ossicle redemonstrated adjacent to the ulnar styloid, unchanged. No new abnormal soft tissue calcification. XR/XR hand wrist RT IMPRESSION: Unremarkable examination. External Record Review External record reviewed: Inpatient record, Office record and Outpatient record Discharge Plan Discharge Clinical Impression: Contusion of right wrist, initial encounter Patient Disposition: Home, Self-Care Instructions: Contusion in Adults (ED) Additional Instructions: You have been evaluated in the emergency department today for wrist and thumb pain. Your evaluation did not find evidence of medical conditions requiring emergent intervention at this time. We have provided an CASEY wrap for you to use while your wrist and thumb heal. Please rest, ice, and elevate your wrist, and resume normal activities as tolerated. We recommend you take 600mg ibuprofen every 6 hours or 650mg Tylenol every 6 hours as needed for pain. If needed you can alternate these medications as they take 1 medication every 3 hours. For instance at noon take ibuprofen, then at 3:00 p.m. take Tylenol, then at 6:00 p.m. take ibuprofen. Please schedule an appointment for follow-up with your primary care provider this week. Return to the emergency department if you expe rience worsening pain, numbness, tingling, change of color in your tingers, or any other concerning symptoms. If symptoms do not begin to improve over the next 1-2 weeks, you can follow-up with orthopedics. Prescriptions: No Action ciprofloxacin HCl 500 mg tablet 500 mg PO Q12H 7 Days Qty: 14 0RF naproxen 500 mg tablet 500 mg PO BID PRN (Reason: pain) Qty: 14 0RF ondansetron 4 mg tablet,disintegrating 4 mg PO Q8H PRN (Reason: nausea and vomiting) Qty: 10 0RF oxycodone 5 mg capsule 5 mg PO Q4-6H PRN (Reason: Pain, Severe (Pain Scale 7-10)) Qty: 15 0RF Referrals: [facility] [Provider Group]
--- NOTE | 2023-04-10 14:40 | PC.NURSE ---
cynthia applied, nad,
== END 2023-04-10 14:40 | disposition home or self-care (01) ==
PROVIDERS: Emergency Provider Emergency Medicine
DX: S60.211A Contusion of right wrist, initial encounter (principal); S60.011A Contusion of right thumb without damage to nail, initial encounter; W22.8XXA Striking against or struck by other objects, initial encounter; Y93.E9 Activity, other interior property and clothing maintenance; Y92.009 Unspecified place in unspecified non-institutional (private) residence as the place of occurrence of the external cause; Y99.9 Unspecified external cause status
CPT/HCPCS: 73110; 73130; 99282; 99283

== ENCOUNTER 2023-06-21 15:59 | Emergency (ER) | payer MEDICAID, SELFPAY ==
[2023-06-21 16:38] VITALS: BP 107/69; PULSE 82; RESP 18; TEMP 36.2; O2SAT 100; BMI 20.4
--- NOTE | 2023-06-21 16:43 | ED.FEMALEGU ---
HPI - Female Genitourinary General Chief complaint: Urogenital-Female Stated complaint: trouble voiding, back pain Time Seen by Provider: 06/21/23 23:31 Source: patient Mode of arrival: ambulatory Limitations: no limitations History of Present Illness HPI Narrative: Patient comes to the emergency room complaining of 2 days of dysuria, urgency, frequency and bilateral left flank pain worse on the left. Patient states that she has had multiple UTIs in the past. Patient denies fever chills. Patient denies any significant abdominal pain other than some suprapubic discomfort with urination. Related Data Previous Rx's Medication Instructions Recorded oxycodone 5 mg capsule 5 mg PO Q4-6H PRN Pain, Severe 08/19/21 (Pain Scale 7-10) #15 caps ciprofloxacin HCl 500 mg tablet 500 mg PO Q12H 7 days #14 tabs 01/24/22 naproxen 500 mg tablet 500 mg PO BID PRN pain #14 tabs 01/24/22 ondansetron 4 mg disintegrating 4 mg PO Q8H PRN nausea and 01/24/22 tablet vomiting #10 tabs levofloxacin 500 mg tablet 500 mg PO DAILY #10 tabs 06/21/23 phenazopyridine 100 mg tablet 100 mg PO TID 6 doses #6 tabs 06/21/23 Allergies Allergy/AdvReac Type Severity Reaction Status Date / Time No Known Allergies Allergy Verified 01/23/22 18:16 Review of Systems Review of Systems: Constitutional : No Weight loss, No Fever, No Chills, No Night Sweats, No Fatigue, No Malaise ENT/Mouth : No Hearing loss, No Ear Pain, No Nasal Congestion, No Sinus Pain, No Hoarseness, No sore throat, No Rhinorrhea, No Swallowing Difficulty Eyes: No Eye Pain, No Swelling, No Redness, No Foreign Body, No Discharge, No Vision Changes Cardiovascular : No Chest Pain, No SOB, No Dyspnea on Exertion, No Orthopnea, No Edema, No Palpitations Respiratory : No Cough, No Sputum, No Wheezing, No Smoke Exposure, No Dyspnea Gastrointestinal : No Nausea, No Vomiting, No Diarrhea, No Constipation, No abdominal Pain, No Hematochezia, No Melena Genitourinary : no irregular bleeding, complaining of dysuria, no hematuria, complaining of left-sided flank pain mild right flank pain, frequency Musculoskeletal : No joint pain, No Myalgias, No Joint Swelling Skin : No Skin Lesions, No rash Neuro : No Weakness, No Numbness, No Paresthesias, No Loss of Consciousness, No Dizziness, No Headache Psych : No Anxiety/Panic, No Depression, No SI/HI/AH/VH, No Social Issues, Heme/Lymph: No Bruising, No Bleeding,No Lymphadenopathy Endocrine : No Polyuria, No Polydipsia, No Temperature Intolerance PMFSH Past Medical History Onset Date is defined in the Problem List Problems that require an onset date and time if occurred within 24 hrs of arrival to the ED Aortic Dissection and Rupture; Neurologic impairment; Cardiopulmonary Arrest; Endotracheal Intubation; Insertion or Replacement of Mechanical Circulatory Assist Device Medical History Anemia affecting Cholestasis during in third trimester History of COVID-19 COVID-19 vaccine series completed Surgical History History of surgery on right wrist Family History Family History Mother Colon cancer Father Prostate cancer Paternal Grandfather Prostate cancer Social History Social History Household Members: Children Alcohol intake: never Patient Tobacco Use Status: Never used Tobacco Advance Directives: No Advance Directives Information Provided: No Gender identity: Female Physical Exam Vital Signs: Vital Signs: Last Vital Signs Temp 98.3 F 06/21/23 23:56 Pulse 74 06/21/23 23:56 Resp 16 06/21/23 23:56 BP 124/73 06/21/23 23:56 Pulse Ox 100 06/21/23 23:56 O2 Del Method Room Air 06/21/23 23:56 BMI result Body Mass Index 20.4 Const: Other: Appearance: Alert. Oriented X3. No acute distress. Eyes: Pupils equal, round and reactive to light. ENT: Pharynx normal. Neck: Normal inspection. Neck supple. No lymph nodes noted. No crepitus CVS: Normal heart rate and rhythm. Pulses normal. Normal S1 and S2 Respiratory: No respiratory distress. Breath sounds normal. No Wheezing. No rales Abdomen: Soft and nontender. No rigidity. No distention. Back: No thoracic or lumbar spine tenderness, mild CVA tenderness bilaterally, more pronounced on the left Skin: Skin warm and dry. Normal skin color. Normal skin turgor. Extremities: No lower extremity edema. No Lacerations. No Rash Neuro: Oriented X 3. No motor deficit. No sensory deficit. Moving all extremities. No slurred speech. CN 2 through 12 grossly intact Psych: calm, cooperative, normal affect Course Course Course Narrative: RME: 28 female presents to ED for dysuria for 2 days with left flank pain. Patient states history of kidney infection in the past. Patient was seen at [facility] in the waiting room but left before results came back. Patient denies seeing a provider just had labs drawn at [facility]. UA labs ordered. Medications Administered Discontinued Medications Generic Name Dose Route Start Last Admin Trade Name Freq PRN Reason Stop Dose Admin Levofloxacin 500 mg 06/21/23 23:43 06/21/23 23:52 Levofloxacin 500 Mg Tablet PO 06/21/23 23:44 500 mg ONCE ONE Administration Phenazopyridine HCl 100 mg 06/21/23 23:43 06/21/23 23:52 Phenazopyridine Hcl 100 Mg Tablet PO 06/21/23 23:44 100 mg ONCE ONE Administration Medical Decision Making Medical Decision Making [facility] Narrative: -my interpretation of labs: Hemoglobin 8.9, patient does have history of chronic anemia. White blood cell count elevated 15. Normal chemistry and LFTs, test negative, urinalysis positive for UTI. -my interpretation of CT scan: No ureterolithiasis or hydronephrosis present -clinically, patient has pyelonephritis -patient has no fever, normal blood pressure, not tachycardic, sepsis is not suspected Differential Diagnosis Differential Diagnoses: The differential diagnosis associated with the presentation includes (UTI, pyelonephritis, ureterolithiasis, musculoskeletal pain) Admission/Observation Consideration of admission/observation: Escalation of care including admission/observation considered (Given patient's presentation and previous history, admission was considered) Lab Data [facility] Lab Attestation statement: I reviewed the patient's lab results. 06/21/23 17:22 06/21/23 17:22 Labs: Lab Results 06/21/23 Range/Units 17:22 WBC 15.0 H (4.8-10.8) X10*3/uL RBC 4.17 L (4.20-5.50) X10*6/uL Hgb 8.9 L (12.0-16.0) g/dl Hct 29.9 L (37.0-47.0) % MCV 71.7 L (80.0-98.0) fL MCH 21.3 L (27.0-33.0) pg MCHC 29.8 L (31.0-35.0) g/dl RDW 17.0 H (11.0-16.0) % Plt Count 434 H (160-400) X10*3/uL MPV 8.8 L (9.4-12.3) fL Immature Gran % (Auto) 0.5 H (0.0-0.4) % Neut % (Auto) 74.9 H (45-73) % Lymph % (Auto) 16.9 L (20-40) % [place] % (Auto) 6.0 (2-11) % Eos % (Auto) 1.3 (0-4) % Baso % (Auto) 0.4 (0-2) % Lymph # (Auto) 2.5 (1.2-4.9) X10*3/uL [place] # (Auto) 0.9 (0.1-1.2) X10*3/uL Eos # (Auto) 0.2 (0.0-0.4) X10*3/uL Baso # (Auto) 0.1 (0.0-0.2) X10*3/uL Abs Immat Gran (auto) 0.07 H (0.00-0.03) X10*3/uL Absolute Neuts (auto) 11.2 H (2.0-8.3) x10*3/uL Absolute Nucleated RBC 0.000 (0.0-0.012) X10*3/uL Nucleated RBC % (auto) 0.0 (0.0-0.2) /100WBC Sodium 142 (135-145) mmol/L Potassium 3.9 (3.3-5.1) mmol/L Chloride 107 (96-108) mmol/L Carbon Dioxide 26 (22-29) mmol/L Anion Gap 13 (12-20) BUN 12 (9-16) mg/dL Creatinine 0.70 (0.5-1.4) mg/dL Estim Creat Clear Calc 106.4 Estimated GFR > 60 Random Glucose 89 (60-115) mg/dL Calcium 10.0 D (8.4-10.2) mg/dL Total Bilirubin 0.6 (0.0-1.0) mg/dL AST 17 (5-31) U/L ALT 12 (0-31) U/L Alkaline Phosphatase 61 (39-117) U/L Total Protein 7.9 (6.5-8.0) g/dL Albumin 4.6 (3.5-5.0) g/dL Beta HCG, Quant < 2 mIU/mL Urine Color Yellow Urine Appearance Cloudy Urine pH >= 9.0 (5.0-9.0) Ur Specific [place] 1.020 (1.005-1.025) Urine Protein 100 (2+) H (Neg-Trace) mg/dL Urine Glucose (UA) Negative (Negative) mg/dL Urine Ketones Trace (Negative) mg/dL Urine Blood Negative (Negative) Urine Nitrite Negative (Negative) Ur Leukocyte Esterase Moderate (2+) H (Negative) Urine RBC 6-10 H (0-2) /HPF Urine WBC >50 H (0-5) /HPF Ur Squamous Epith Cells 0-2 (0-2) /HPF Urine Bacteria 1+ (None Seen) Hyaline Casts 0-2 (0-2) /LPF Independent Interpretation I performed an independent interpretation of an: CT Scan Radiology Impression Discussion of test interpretation with radiology: I have reviewed the radiologist's reading. Radiologist Impression: FINDINGS: LUNG BASES: The visualized lung bases are unremarkable. LIVER, GALLBLADDER, AND BILIARY TREE: The liver is normal in size, shape, and attenuation. No focal hepatic lesion or biliary ductal dilatation is present. The gallbladder is unremarkable with no evidence of radiopaque gallstones, gallbladder wall thickening, or obvious pericholecystic inflammatory changes. PANCREAS: Unremarkable. SPLEEN: Unremarkable. ADRENAL GLANDS: Unremarkable. KIDNEYS AND URETERS: The kidneys are normal in size, shape, and attenuation. No hydronephrosis, hydroureter, or calculi seen. No perinephric stranding. BLADDER: Unremarkable. GASTROINTESTINAL TRACT: The small and large bowel are unremarkable. The appendix is nonvisualized. ABDOMINAL WALL: No significant hernia is appreciated. LYMPH NODES: Normal. VASCULAR: Vascular calcifications in the abdomen or pelvis. There is no aneurysm. PELVIC VISCERA: Unremarkable. OSSEOUS STRUCTURES: Unremarkable. CT/CT abdomen pelvis w IV con IMPRESSION: No acute abnormality CT scan abdomen pelvis. Fleischner guidelines were followed. Critical Care Time Critical Care Time Critical Care Time: Yes Total Critical Care Time: 30 Attestation: Please follow-up with your primary care physician tomorrow. If you have any worsening or new symptoms, please return to the emergency room or call 911 Discharge Plan Discharge Clinical Impression: Pyelonephritis Patient Disposition: Home, Self-Care Instructions: Kidney Infection (ED) Additional Instructions: Please follow-up with your primary care physician tomorrow. If you have any worsening or new symptoms, please return to the emergency room or call 911 Prescriptions: New levofloxacin 500 mg tablet 500 mg PO DAILY Qty: 10 0RF phenazopyridine 100 mg tablet 100 mg PO TID Qty: 6 0RF No Action ciprofloxacin HCl 500 mg tablet 500 mg PO Q12H 7 Days Qty: 14 0RF naproxen 500 mg tablet 500 mg PO BID PRN (Reason: pain) Qty: 14 0RF ondansetron 4 mg tablet,disintegrating 4 mg PO Q8H PRN (Reason: nausea and vomiting) Qty: 10 0RF oxycodone 5 mg capsule 5 mg PO Q4-6H PRN (Reason: Pain, Severe (Pain Scale 7-10)) Qty: 15 0RF Interventions: ED Discharge Assessment Last Done: 06/21/23 23:57 Discharge Date/Time: 06/21/23 23:58
[2023-06-21 23:56] VITALS: BP 124/73; PULSE 74; RESP 16; TEMP 36.8; O2SAT 100
--- NOTE | 2023-06-21 23:56 | PC.NURSE ---
this rn discharged pt at this time, pt understands d/c instructions, no questions at this time. pt medicated upon discharge.
== END 2023-06-21 23:58 | disposition home or self-care (01) ==
PROVIDERS: Emergency Provider Emergency Medicine
DX: N12 Tubulo-interstitial nephritis, not specified as acute or chronic (principal); B95.7 Other staphylococcus as the cause of diseases classified elsewhere; Z87.440 Personal history of urinary (tract) infections
CPT/HCPCS: 36415; 74176; 80053; 81001; 84702; 85025; 87086; 87088; 87186; 99284

== ENCOUNTER 2024-01-09 09:52 | Outpatient (REF) | payer MEDICAID, SELFPAY ==
[2024-01-09 10:45] LABS: HCG Quantitative < 2 mIU/mL
== END 2024-01-09 09:53 | disposition home or self-care (01) ==
LOC: HO.LAB 09:52
PROVIDERS: Visit Provider Obstetrics & Gynecology
DX: Z32.01 Encounter for pregnancy test, result positive (principal); N91.2 Amenorrhea, unspecified
CPT/HCPCS: 36415; 81025; 84702; 99212

== ENCOUNTER 2024-01-09 10:32 | Outpatient (AMB) | payer MEDICAID, SELFPAY ==
[2024-01-09 10:37] VITALS: BP 102/72; BMI 18.7
--- NOTE | 2024-01-09 10:37 | MHC.OFFVIS ---
Vital Signs 01/09/24 10:37 Height 5 ft 6 in Weight 116 lb BMI 18.7 BP 102/72 Intake Visit Reasons: HCG Marketing Proposal Coordinator Required: No Information Interpreted: non-clinical & clinical Accompanied by: Self / Same As Patient Allergies No Known Allergies Allergy (Verified 01/09/24 10:41) Is last menstrual period known: Yes Last menstrual period: 12/06/23 HPI Comments Details: Presenting because the patient had 2 positive test few days ago. The patient had laparoscopic bilateral salpingectomy in 09/06 [facility] Medical History Anemia affecting Cholestasis during in third trimester History of COVID-19 COVID-19 vaccine series completed Surgical History History of surgery on right wrist Family History Mother Colon cancer Father Prostate cancer Paternal Grandfather Prostate cancer Social History Household Members: Children Both parents involved: Yes Alcohol intake: never Patient Tobacco Use Status: Never used Tobacco Gender identity: Female Female Reproductive History Menstrual Age of Menarche: 13 Duration of menses: <3 days Date of last menstrual period: 12/06/23 control method: permanent sterilization Review of Systems Const All systems reviewed & are unremarkable except as noted in HPI and below Reports as per HPI and Reports no additional complaints GI Reports no additional complaints Reports no additional complaints Physical Exam Vital Signs: Last Vital Signs BP 102/72 01/09/24 10:37 BMI result Body Mass Index 18.7 Assessment & Plan Assessment & Plan (1) test positive: Code(s): Z32.01 - Encounter for test, result positive Category: Medical Plan: Urine test done in the office was negative, hCG quantitative was less than 2. Explained to the patient that tests are negative. Instructions given the patient to call in case of amenorrhea or any future positive test. Discussed with the patient the very low risk of after laparoscopic bilateral salpingectomy but in case of ectopic should be ruled out, instructions given the patient to call in case of any future positive test. All questions answered, the patient verbalized understanding and agreed with the plan. Coding Level of Care Code Est Pt Level 3 (01739) Diagnoses test positive Z32.01
== END 2024-01-09 15:06 | disposition home or self-care (01) ==
LOC: HO.HWS 10:32
PROVIDERS: Visit Provider Obstetrics & Gynecology
DX: Z32.02 Encounter for pregnancy test, result negative (principal); Z32.01 Encounter for pregnancy test, result positive
CPT/HCPCS: 99213

== ENCOUNTER 2025-03-04 20:47 | Emergency (ER) | payer MEDICAID, SELFPAY ==
[2025-03-04 20:54] VITALS: BP 103/74; PULSE 61; RESP 18; TEMP 36.5; O2SAT 99; BMI 20.2
--- OUTSIDE RECORDS SUMMARY | 2025-03-04 21:05 | XMS_ITS | Clinical Summary ---
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 Role Phone Unavailable Primary Care Provider Unavailabl e Immunizations Immunization Administration Dates Next Due Moderna Covid-19 Vaccine 6+ Bivalent 08/11/2022 PPD Test 06/19/2023 Social History Tobacco Use Types Packs/Day Years Used Date Smoking Tobacco: Never Assessed Comments Unknown Sex and Gender Information Value Date Recorded Sex Assigned at Female 04/17/2022 10:17 AM EDT Legal Sex Female 10:17 AM EDT Gender Identity Female 08/11/2022 3:58 PM EST Sexual Orientation Choose not to disclose 2022 3:59 PM EST Plan of Treatment Health Maintenance Due Date Last Done Comments Depression Screening 1993 SDOH Screening 1993 Disability Screening 1993 Alcohol/Substance Use Screening 2005 Tobacco Screening 2005 Family Planning (PISQ) 2008 HPV Vaccines (1 - 3-dose series) 2008 DTaP/Tdap/Td Vaccines (1 - Tdap) 2012 Hepatitis B Vaccines (1 of 3 - 19+ 3-dose series) 2012 Pap Smear 2014 Cervical Cancer Screening 2023 HPV/Cotest 2023 COVID-19 Vaccine (2 - 2024-2 6 season) 2025 08/11/2022 Influenza Vaccine (#1) 2025 Zoster Vaccines (1 of 2) 2043 RSV Patients and Pa tients Aged 60 years or older (1 - 1-dose 75+ series) 2068 HIV Screening Completed 07/16/2019 Hepatitis C Screening Completed 07/16/2019 HIB Vaccines Aged Out No longer eligi ble based on patient's age to complete this topic Hepatitis A Vaccines Aged Out No long er eligible based on patient's age to complete this topic IPV Vaccines Aged Out No longer eligi ble based on patient's age to complete this topic Meningococcal B Vaccine Aged Out No l onger eligible based on patient's age to complete this topic Meningococcal Vaccine Aged Out No octavio lamont eligible based on patient's age to complete this topic Pneumococcal Vaccine: Pediat rics (0 to 5 Years) and At-Risk Patients (6 to 49) Years Aged Out No longer eligi ble based on patient's age to complete this topic RSV under 20 months Aged Out No longe r eligible based on patient's age to complete this topic Rotavirus Vaccines Aged Out No longer eligible based on patient's age to complete this topic Procedures Procedure Name Priority Date/Time Associated Diagnosis Comments MICKEY HISTORICAL HEPATITIS C ANTIBODY Routine 07/16/2019 10:20 AM EST AngelitoZZ HISTORICAL HIV AB/AG Routine 07/16/2019 10:20 AM EST from Last 3 Months or Most Recently Relevant to Health Maintenance Results * HEPATITIS C ANTIBODY (07/16/2019 10:20 AM EST) HEPATITIS C ANTIBODY NONREACTIVE NONREACTIVE [facility] Comment: Antibodies to HCV not detected; does not exclude early acute HCV infection. 07/16/2019 10:2 0 AM EST us Janeth Rueda HISTORICAL/NON ORDERABLE LABS Fi nal Result [facility] [address] * HIV AB/AG (07/16/2019 10:20 AM EST) HIV AG/AB [facility]ACTIVE [facility] Comment: HIV-1 p24 Ag and/or HIV-1/HIV-2 Ab not detected. A test result that is nonreactive does not exclude the possibility of exposure to or infection with HIV-1 and/or HIV-2. Nonreactive results in this assay for individuals with prior exposure to HIV-1 and/or HIV-2 may be due to antigen and antibody levels that are below the limit of detection of this assay. [employer] HIV Ag/Ab Combo assay result and supplemental assay results should be interpreted in conjunction with the patient's clinical presentation, history and other laboratory results. If the results are inconsistent with clinical evidence, additional testing is suggested to confirm the result. 07/16/2019 10:2 0 AM EST us Janeth Rueda HISTORICAL/NON ORDERABLE LABS Fi nal Result [facility] [address] from Last 3 Months or Most Recently Relevant to Health Maintenance [facility]
[2025-03-04 21:16] LABS: MANUAL DIFF FLAG NO
[2025-03-04 21:18] LABS: Hematocrit 35.0 % (37.0-47.0); Hemoglobin 12.5 g/dl (12.0-16.0); Imm Gran Abs Auto 0.03 X10*3/uL (0.00-0.03); Imm Gran Pct Auto 0.3 % (0.0-0.4); Lymphocytes Absolute Auto 2.6 X10*3/uL (1.2-4.9); Mean Corpuscular HGB Conc 35.7 g/dl (31.0-35.0); Mean Corpuscular Hemoglobin 31.6 pg (27.0-33.0); Mean Corpuscular Volume 88.6 fL (80.0-98.0); NRBC Abs Auto 0.000 X10*3/uL (0.0-0.012); NRBC Pct Auto 0.0 /100WBC (0.0-0.2); Platelet Count 340 X10*3/uL (160-400); Red Blood Count 3.95 X10*6/uL (4.20-5.50); White Blood Count 8.8 X10*3/uL (4.8-10.8)
--- NOTE | 2025-03-04 22:42 | ED.GENADULT ---
HPI - General Adult General Chief complaint: Vaginal Bleeding Stated complaint: heavy bleeding and cramping Time Seen by Provider: 03/04/25 22:08 Source: patient and RN notes reviewed Mode of arrival: ambulatory Limitations: no limitations History of Present Illness ED Provider: Kamlesh LOUIS narrative: 29-year-old female who denies any past medical history presents for evaluation of heavy menstrual flow She reports having a menstrual flow since yesterday The patient denies any pain, she does endorse some chills She reports tubal ligation about 3 years ago She feels weak and fatigued today Denies any burning with urination, urinary frequency or foul-smelling urine She is not on control Related Data Home Medications ?Medication ?Instructions ?Recorded ?Confirmed No Known Home Meds 01/09/24 01/09/24 Allergies Allergy/AdvReac Type Severity Reaction Status Date / Time No Known Allergies Allergy Verified 03/04/25 20:58 Review of Systems Constitutional: Constitutional: Denies body ache(s), Denies chills and Denies fever(s) Eyes: Eyes: Denies blurry vision ENT: Denies vertigo and Denies dizziness Cardiovascular: Cardiovascular: Denies chest pain and Denies dyspnea on exertion Respiratory: Respiratory: Denies cough and Denies dyspnea on exertion Gastrointestinal: Gastrointestinal: Denies abdominal pain, Denies nausea and Denies vomiting Genitourinary: Genitourinary: Reports abnormal vaginal bleeding, Denies dysuria, Denies pelvic pain and Denies vaginal discharge Musculoskeletal: Musculoskeletal: Denies back pain Integumentary/Breasts: Skin/Breast: Denies rash Neurologic: Denies vertigo and Denies dizziness Psychiatric: Psychiatric: Denies anxiety [facility] Past Medical History Medical History Anemia affecting Cholestasis during in third trimester History of COVID-19 COVID-19 vaccine series completed Surgical History History of surgery on right wrist Family History Family History Mother Colon cancer Father Prostate cancer Paternal Grandfather Prostate cancer Social History Social History Household Members: Children Alcohol intake: never Patient Tobacco Use Status: Never used Tobacco Smoked in Last 30 Days: Yes Use of substances other than those prescribed or required for medical reasons: No Advance Directives: No Advance Directives Information Provided: No Gender identity: Female Physical Exam ED Vital Signs: Vital Signs - 24 hr 03/04/25 20:54 Temperature 97.7 F Pulse Rate 61 Respiratory Rate 18 Blood Pressure 103/74 Pulse Oximetry 99 Oxygen Delivery Method Room Air BMI result Body Mass Index 20.2 Const General: healthy appearing, comfortable, no acute distress, alert and awake Nutritional Appearance: well nourished Orientation/consciousness: patient oriented x3 HENMT Head: Yes normocephalic and Yes atraumatic Eyes Eyelids: Yes eyelids normal Conjunctivae: conjunctivae normal Sclerae: sclerae normal Corneas: corneas normal Pupils: Equal, round and reactive pupils present EOM: EOMs intact bilaterally Neck Neck: Yes full ROM Resp Effort & Inspection: normal respiratory effort, able to speak in complete sentences and not labored Cardio Rate: regular rate Rhythm: regular rhythm GI Inspection: No distended Palpation (GI): Soft to palpation, not firm, nontender, no guarding and not rigid Neuro General: patient oriented x3 Cranial nerves: Yes Equal, round and reactive pupils present and Yes Bilaterally intact EOM present Cognition (Neuro): normal cognition Extrem Other: Moving all extremities well without any obvious deformities Medical Decision Making Medical Decision Making MDM Narrative: 29-year-old female presents for evaluation of heavy menstrual flow starting yesterday. She reports that she is bleeding through approximately 10 pads per day today. She endorses clots as well. She had tubal ligation 3 years ago. She is sexually active with 1 male partner. She denies any abnormal vaginal discharge or pelvic pain. Denies any urinary complaints. Her physical exam is reassuring, she has no abdominal tenderness and she denies abdominal pain, this is less likely ovarian cyst or ovarian torsion. She has a history of uterine fibroids which could contribute to abnormal menstrual flow but given the lack of discomfort, this is favored to be less likely. I was still at an hCG despite her previous tubal ligation that these occasionally fail. The patient's hemoglobin and hematocrit today are actually higher than they have ever been in the labs in our system. She is not severely anemic with a hemoglobin of 12.5. Her vital signs are stable, she is not tachycardic or hypotensive. Plan for symptomatic care Differential Diagnosis Differential Diagnoses: The differential diagnosis associated with the presentation includes Dysmenorrhea Medrol menorrhagia Menorrhagia Failed tubal ligation Uterine fibroids Lab Data MDM Lab Attestation statement: I reviewed the patient's lab results. No leukocytosis. The patient has a stable normocytic anemia with a hemoglobin of 12.5 which is higher than she had ever been before. 03/04/25 21:11 03/04/25 22:23 Labs: Lab Results 03/04/25 03/04/25 Range/Units 21:11 22:23 WBC 8.8 (4.8-10.8) X10*3/uL RBC 3.95 L (4.20-5.50) X10*6/uL Hgb 12.5 D (12.0-16.0) g/dl Hct 35.0 L (37.0-47.0) % MCV 88.6 (80.0-98.0) fL MCH 31.6 (27.0-33.0) pg MCHC 35.7 H (31.0-35.0) g/dl RDW 13.2 (11.0-16.0) % Plt Count 340 (160-400) X10*3/uL MPV 8.6 L (9.4-12.3) fL Immature Gran % (Auto) 0.3 (0.0-0.4) % Neut % (Auto) 60.1 (45-73) % Lymph % (Auto) 30.0 (20-40) % Gilchrist % (Auto) 6.8 (2-11) % Eos % (Auto) 2.3 (0-4) % Baso % (Auto) 0.5 (0-2) % Lymph # (Auto) 2.6 (1.2-4.9) X10*3/uL Gilchrist # (Auto) 0.6 (0.1-1.2) X10*3/uL Eos # (Auto) 0.2 (0.0-0.4) X10*3/uL Baso # (Auto) 0.0 (0.0-0.2) X10*3/uL Abs Immat Gran (auto) 0.03 (0.00-0.03) X10*3/uL Absolute Neuts (auto) 5.3 (2.0-8.3) x10*3/uL Absolute Nucleated RBC 0.000 (0.0-0.012) X10*3/uL Nucleated RBC % (auto) 0.0 (0.0-0.2) /100WBC Sodium 141 (135-145) mmol/L Potassium 3.7 (3.3-5.1) mmol/L Chloride 110 H (96-108) mmol/L Carbon Dioxide 27 (22-29) mmol/L Anion Gap 8 L (12-20) BUN 10 (9-16) mg/dL Creatinine 0.55 (0.5-1.4) mg/dL Estim Creat Clear Calc 132.6 Estimated GFR > 60 Random Glucose 114 (60-115) mg/dL Calcium 8.8 D (8.4-10.2) mg/dL Total Bilirubin 0.9 (0.0-1.0) mg/dL AST 21 (5-31) U/L ALT 21 (0-31) U/L Alkaline Phosphatase 52 (39-117) U/L Total Protein 6.7 (6.5-8.0) g/dL Albumin 4.3 (3.5-5.0) g/dL Beta HCG, Quant < 2 mIU/mL Discharge Plan Discharge Clinical Impression: Dysfunctional uterine bleeding Patient Disposition: Home, Self-Care Instructions: Abnormal (Dysfunctional) Uterine Bleeding (ED) Additional Instructions: You were seen in the Emergency Department today for abnormal vaginal bleeding. Your blood counts were stable. It is important if you were given medications today to help with the bleeding to take them as prescribed. Do not take aspirin containing products. You need to follow up with your primary care doctor or OBGYN. Please return for worsening symptoms such as pain, dizziness, fainting, bleeding this is much heavier than a period and you are having large clots bigger than a golf ball. Please see list of OGBYN providers below if you do not have one. OBGYN and Midwifery [facility] [address] [place] [address] [phone] [facility] [address] [facility] [phone] [facility] [address] [place] [phone] [facility] [place] [phone] [facility] [phone] Prescriptions: No Action No Known Home Meds Print Language: Filipino
[2025-03-04 23:04] LABS: Alanine Aminotransferase 21 U/L (0-31); Albumin Level 4.3 g/dL (3.5-5.0); Alkaline Phosphatase 52 U/L (39-117); Anion Gap 8 (12-20); Aspartate Amino Transferase 21 U/L (5-31); Blood Urea Nitrogen 10 mg/dL (9-16); Calcium 8.8 mg/dL (8.4-10.2); Carbon Dioxide 27 mmol/L (22-29); Chloride 110 mmol/L (96-108); Creatinine Clr Calc Pharmacy 132.6; Estimated Glomerular Filt Rate > 60; Potassium 3.7 mmol/L (3.3-5.1); Sodium 141 mmol/L (135-145); Total Protein 6.7 g/dL (6.5-8.0)
[2025-03-04 23:18] VITALS: BP 101/61; PULSE 65; RESP 18; TEMP 36.5; O2SAT 100
== END 2025-03-04 23:19 | disposition home or self-care (01) ==
PROVIDERS: Physician Assistant; Emergency Provider Student in an Organized Health Care Education/Training Program
DX: N92.0 Excessive and frequent menstruation with regular cycle (principal); N93.8 Other specified abnormal uterine and vaginal bleeding; R25.2 Cramp and spasm; R10.2 Pelvic and perineal pain
CPT/HCPCS: 36415; 80053; 84702; 85025; 99283; 99284